=== PATIENT | male | born 1940 | race Caucasian/White ===

== ENCOUNTER → 2020-02-12 | Outpatient (CLI) | payer MEDICARE, BC ==
--- NOTE | 2020-02-12 10:24 | CT ---
EXAMINATION TYPE: CT brain wo con DATE OF EXAM: 02/12/2020 COMPARISON: None HISTORY: 79-year-old male R42, Dizziness TECHNIQUE: Examination was done in axial plane without intravenous contrast. Coronal and sagittal r econstructions performed. CT DLP: 1177 mGycm Automated exposure control for dose reduction was used. FINDINGS: There is no evidence of acute intracranial hemorrhage, acute ischemic changes, mass, or mass effect. There is no effacement of cerebral sulci or basal subarachnoid cisterns. There is no midline shift. Kern-white matter distinction is preserved. There is moderate ventriculomegaly with evidence ratio measured at 0.41. Prominent retrocerebellar CSF space on both sides but then more so on the right measuring up to 6.7 c m wide by 5.9 cm grade caudal by 3.2 cm AP. On the left, this measures 3.2 x 3.1 x 1.4 cm. Some local ized mass effect onto the cerebellum is suggested. 4 to 5 mm nodular prominence along the anterior midline, axial image 18 and coronal image 28. Partially empty sella noted. Scattered trace mucosal thickening ethmoid air cells. Remainder paranasal sinuses and mastoid air jian ls are well pneumatized. Orbits and globes are intact. IMPRESSION: 1. Moderate ventriculomegaly. This may in part relate to central cerebral atrophy. However, correlati on for possible NPH is recommended. 2. 4 to 5 mm nodular prominence along the anterior midline. MRA [place] can exclude an anter ior communicating artery aneurysm. 3. Prominent retrocerebellar CSF space, right greater than left. Underlying arachnoid cysts measuring up to 6.7 cm not excluded. Slight local mass effect is suggested on the right without cistern/ventri cular effacement or herniation. 4. No acute intracranial abnormality seen.
== END | disposition home or self-care (01) ==
LOC: RADCTMAIN 07:06
PROVIDERS: ATTEND Internal Medicine
DX: G93.89 Other specified disorders of brain (principal); G93.0 Cerebral cysts
CPT/HCPCS: 70450

== ENCOUNTER → 2020-03-30 | Outpatient (CLI) | payer MEDICARE, BC ==
--- NOTE | 2020-03-30 16:47 | MR ---
EXAMINATION TYPE: MR angio head wo con DATE OF EXAM: 03/30/2020 COMPARISON: CT brain February 12, 2020 HISTORY: F/U on abnormal CT brain TECHNIQUE: Time of flight images focusing on the [place] were performed without contrast.. 2-D and 3-D postprocessing imaging is performed on an independent workstation and reviewed. FINDINGS: Codominant vertebrobasilar system. Vertebral arteries are patent to basilar junction. No si gnificant focal stenosis or aneurysmal change in the posterior circulation. There are patent bilatera l posterior communicating arteries. Anterior circulation shows patent anterior communicating artery. There is no significant focal stenos is or aneurysmal change. IMPRESSION: No aneurysmal change at the level of the [place].
--- NOTE | 2020-03-30 16:58 | MR ---
EXAMINATION TYPE: MR brain wo/w con DATE OF EXAM: 03/30/2020 COMPARISON: CT brain February 12, 2020 HISTORY: F/U on abnormal CT brain TECHNIQUE: Multiplanar, multisequence images of the brain and brainstem is performed without and with IV contras t, utilizing 9 mL intravenous Gadavist . FINDINGS: Diffusion weighted images demonstrate no evidence of a recent infarct or other diffusion ab normality. Redemonstration of moderate hydrocephalus out of proportion to degree of sulcal effacement . Periventricular T2 hyperintensities likely reflect transependymal flow of CSF and/or mild chronic s mall vessel ischemic changes. Stable mild prominence of the fourth ventricle. Persistent prominent CS F posterior to the right posterior cerebellum. To reflect large arachnoid cyst or adjacent arachnoid cyst with local mass effect measuring approximately 7.1 cm transversely axial image 8. Small prominen ce of CSF anterior to the left cerebellar hemisphere axial image 9 is suspicious for smaller arachnoi d cyst. Midline structures demonstrate normal morphology. There is some generalized thinning of the corpus ca llosum with focal absence or more prominent atrophy of the posterior body sagittal image 10. The cran iocervical junction appears within normal limits. Post contrast images demonstrate no abnormal enhan cement. The dural venous sinuses appear patent. The visualized sinuses are clear and the globes are i ntact. IMPRESSION: Moderate diffuse hydrocephalus redemonstrated out of proportion to degree of sulcal effac ement. Correlate for NPH. Large posterior right arachnoid cyst with local mass effect is confirmed.
== END | disposition home or self-care (01) ==
LOC: RADMRIMAIN 15:41
PROVIDERS: ATTEND Psychiatry & Neurology Neurology
DX: G93.0 Cerebral cysts (principal); G91.9 Hydrocephalus, unspecified
CPT/HCPCS: 70544; 70553; A9585

== ENCOUNTER → 2020-08-18 | Outpatient (CLI) | payer MEDICARE, BC ==
[2020-08-18 19:00] LABS: Hemoglobin A1C 7.3 % (4.0-6.0)
[2020-08-19 02:10] LABS: African American GFR (CKD) 65.8 (60.0-200.0); Albumin 4.8 g/dL (3.80-4.90); Albumin/Globulin Ratio 2.09 (1.60-3.17); Anion Gap 16.7 mmol/L (4.00-12.00); Calcium 9.2 mg/dL (8.7-10.3); Carbon Dioxide 24.3 mmol/L (21.6-31.8); Chol/HDL Ratio 3.19; Globulin 2.3 g/dL (1.6-3.3); LDL Cholesterol,Calculated 94.8 mg/dL (0.0-131.0); Non-African American GFR(CKD) 56.8 (60.0-200.0); Potassium 3.9 mmol/L (3.5-5.5); Total Bilirubin 1.2 mg/dL (0.3-1.2); Total Protein 7.1 g/dL (6.2-8.2); VLDL Calculation 21.2 mg/dL (5.00-40.00)
== END | disposition home or self-care (01) ==
LOC: LABWHC1 09:06
PROVIDERS: ATTEND Internal Medicine
DX: E11.628 Type 2 diabetes mellitus with other skin complications (principal); I10 Essential (primary) hypertension; E78.5 Hyperlipidemia, unspecified
CPT/HCPCS: 36415; 80053; 80061; 83036

== ENCOUNTER 2022-08-02 08:27 | Day surgery (SDC) | payer MEDICARE, BC ==
[2022-07-27 14:47] VITALS: BMI 26.0
[~2022-08-02 08:27] MED LIST: LACTATED RINGERS 1,000 ML IV SCH; LIDOCAINE 1% (10MG/ML) FOR IV START INTRADERMA PRN
[2022-08-02 09:07] VITALS: TEMP 97.6
[2022-08-02 09:14] LABS: Glucose,Whole Blood 156 mg/dL (70-110)
[2022-08-02] MEDS ORDERED: LIDOCAINE 2% INJ 20 MG/ML (2 ML VIAL) ONE (09:37)
[2022-08-02] MEDS ORDERED: PROPOFOL 10 MG/ML 20 ML VIAL IV ONE (09:37)
--- NOTE | 2022-08-02 09:56 | P.PCN ---
Date of Procedure: 08/02/22 Procedure(s) Performed: BRIEF HISTORY: Patient is a 81-year-old pleasant white male scheduled for an elective colonoscopy as a part of value should of iron deficiency anemia. PROCEDURE PERFORMED: Colonoscopy with snare polypectomy. PREOPERATIVE DIAGNOSIS: Iron deficiency anemia. IV sedation per Anesthesia. PROCEDURE: After informed consent was obtained, the patient, was brought into the endoscopy unit. IV sedation was administered by Anesthesia under continuous monitoring. Digital rectal examination was normal. Initially the Olympus CF-160 flexible video colonoscope was then inserted in the rectum, gradually advanced into the cecum without any difficulty. Careful examination was performed as the scope was gradually being withdrawn. Ileocecal valve and the appendiceal orifice were visualized and appeared normal. Prep was excellent. Mucosa of the cecum, appeared normal. There were 2 lipomas noted in the ascending colon measuring between 2-2.5 cm in size. In the transverse colon there was a 6 minute a polyp removed by snare polypectomy. Rest of the ascending colon, transverse colon, descending colon, sigmoid colon, and rectum appeared normal. Retroflexion was performed in the rectum and no lesions were seen. The patient tolerated the procedure well. IMPRESSION: 6 mm transverse colon polyp status post polypectomy 2 cm lipoma in the ascending colon Rest of the colon appeared normal RECOMMENDATIONS: Findings of this examination were discussed with the patient as well as his family. He was advised to follow with the biopsy biopsy results. Continue with a high-fiber diet and repeat colonoscopy only if he has any symptoms.
[2022-08-02 10:10] VITALS: BP 121/71; PULSE 85; RESP 16
== END 2022-08-02 10:42 | disposition home or self-care (01) ==
LOC: ORWHC2ENDO 08:27
PROVIDERS: ATTEND Internal Medicine Gastroenterology
DX: K63.5 Polyp of colon (principal); D17.79 Benign lipomatous neoplasm of other sites; D50.9 Iron deficiency anemia, unspecified; I10 Essential (primary) hypertension; E78.5 Hyperlipidemia, unspecified; E11.9 Type 2 diabetes mellitus without complications; K21.9 Gastro-esophageal reflux disease without esophagitis; Z79.899 Other long term (current) drug therapy; Z79.84 Long term (current) use of oral hypoglycemic drugs
CPT/HCPCS: 88305; 45385; J2704; J2001

== ENCOUNTER → 2023-07-04 | Outpatient (CLI) | payer MEDICARE, BC ==
--- NOTE | 2023-07-04 09:59 | US ---
EXAMINATION TYPE: US prostate transrectal DATE OF EXAM: 07/04/2023 COMPARISON: NONE CLINICAL INDICATION: Male, 82 years old with history of R97.2 ELEVATED PSA; Elevated PSA. 2.79ng/mL 1 06/08 and 9.6ng/mL 07/07 This examination was performed using the transrectal probe. EXAM MEASUREMENTS: Gland Size: 4.9 x 3.3 x 5.6cm Volume: 47.2ml Predicted PSA: 5.7 Actual PSA (if available):9.6 ng/mL Heterogeneous gland. Anechoic lesion peripheral apex = 0.6cm. hypoechoic area right central zone = 1. 2cm ?urethra vs lesion IMPRESSION: No suspicious prostate lesions. MRI prostate should be used to evaluate for clinically s ignificant prostate adenocarcinoma. Predicted PSA = volume x 0.12 ng/ml Calculated Volume = 0.5236 x L x W x H
== END | disposition home or self-care (01) ==
LOC: RADUSWWP 08:45
PROVIDERS: ATTEND Family Medicine
DX: R97.20 Elevated prostate specific antigen [PSA] (principal)
CPT/HCPCS: 76872